=== PATIENT | male | born 1955 | race Hispanic/Latino ===

== ENCOUNTER 2022-06-11 08:42 | Observation (INO) | payer OTHER ==
[2022-06-10 10:38] LABS: BASOPHILS % 0.4 % (0.0-1.0); EOSINOPHILS # (AUTO) 0.2 (0.0-0.4); EOSINOPHILS % 2.7 % (0.0-6.0); HEMATOCRIT 45.3 % (38.2-49.6); HEMOGLOBIN 14.6 g/dL (14.0-18.0); LYMPHOCYTES # (AUTO) 1.9 (1.0-3.2); LYMPHOCYTES % 25.2 % (18.0-39.1); MEAN CORPUSCULAR HEMOGLOBIN 27.5 pg (28-32); MEAN CORPUSCULAR HGB CONC 32.2 g/dL (31-35); MEAN CORPUSCULAR VOLUME 85.3 fL (81-99); MONOCYTES # (AUTO) 0.6 (0.2-0.8); MONOCYTES % 7.6 % (4.4-11.3); NEUTROPHILS # (AUTO) 4.8 (2.1-6.9); NEUTROPHILS % 63.8 % (38.7-80.0); PLATELET COUNT 278 x10e3/uL (140-360); RED BLOOD COUNT 5.31 x10e6/uL (4.3-5.7); RED CELL DISTRIBUTION WIDTH 13.7 % (11.7-14.4)
[~2022-06-11] VITALS: Ht 167.6 cm; Wt 73.0 kg
[~2022-06-11 08:42] MED LIST: ASPIRIN EC81 MG PO; ROPIVACAINE 246.25 MG, EPINEPHRINE HCL 1:1000 1ML 0.5 MG, CLONIDINE HCL 0.08 MG, KETORO... INJ ONE
[2022-06-11] MEDS ORDERED: CELECOXIB 200 MG CAP ONE (08:52)
[2022-06-11] MEDS ORDERED: DEXAMETHASONE SOD PHOS 10 MG/1 ML VIAL ONE (08:52)
[2022-06-11] MEDS ORDERED: GABAPENTIN 300 MG CAP ONE (08:52)
[2022-06-11] MEDS ORDERED: CEFAZOLIN SODIUM 2 GM ONE (08:53)
[2022-06-11] MEDS ORDERED: LACTATED RINGER'S 1,000 ML ONE (08:53)
[2022-06-11] MEDS ORDERED: Vancomycin IV 1,000 MG ONE (10:54)
[2022-06-11] MEDS ORDERED: SODIUM CHLORIDE 0.9% 500ML 500 ML ONE (10:54)
[2022-06-11] MEDS ORDERED: TRANEXAMIC ACID 20 ML ONE (10:54)
[2022-06-11] MEDS ORDERED: SODIUM CHLORIDE 0.9% 100 ML ONE (11:32)
[2022-06-11] MEDS ORDERED: DOCUSATE SODIUM 100 MG CAP PO PRN (12:15)
[2022-06-11] MEDS ORDERED: DIPHENHYDRAMINE HCL INJ 50 MG/ML VIAL IV PRN (12:15)
[2022-06-11] MEDS ORDERED: ACETAMINOPHEN 650 MG SUPP PR PRN (12:15)
[2022-06-11] MEDS ORDERED: ONDANSETRON HCL INJ 2MG/ML 2ML 2 MG/ML VIAL IV PRN (12:15)
[2022-06-11] MEDS ORDERED: HYDROCODONE/APAP 5MG-325MG TAB PO PRN (12:15)
[2022-06-11] MEDS ORDERED: HYDROCODONE/APAP 7.5MG-325MG 1 EA TAB PO PRN (12:15)
[2022-06-11] MEDS ORDERED: BUPIVACAINE 0.5%/EPI 30 ML SDV INJ ONE (12:45)
[2022-06-11] MEDS ORDERED: MIDAZOLAM HCL 2 MG/2 ML VIAL ONE (13:59)
[2022-06-11] MEDS ORDERED: FENTANYL CITRATE/PF 100MCG/2 ML INJ ONE (13:59)
[2022-06-11 15:35] VITALS: BP 133/84
[2022-06-11 15:45] VITALS: BP 133/84
[2022-06-11 16:04] VITALS: BP 133/84
[2022-06-11] MEDS: SODIUM CHLORIDE 0.9% 1000ML 1,000 ML IV SCH (16:18)
[2022-06-11] MEDS: CELECOXIB 200 MG CAP PO SCH (16:48)
[2022-06-11] MEDS ORDERED: ZOLPIDEM TARTRATE 5 MG TAB PO PRN (21:00)
[2022-06-11] MEDS: ASPIRIN 325 MG TAB PO SCH (21:00)
[2022-06-11 21:47] VITALS: BP 167/74
[2022-06-12 00:41] VITALS: BP 133/89
[2022-06-12] MEDS: SODIUM CHLORIDE 0.9% 1000ML 1,000 ML IV SCH (02:21)
[2022-06-12 05:02] VITALS: BP 142/90
[2022-06-12 06:00] LABS: HEMATOCRIT 39.2 % (38.2-49.6); HEMOGLOBIN 12.9 g/dL (14.0-18.0)
[2022-06-12 08:00] VITALS: BP 142/90
[2022-06-12 09:12] VITALS: BP 126/75
[2022-06-12] MEDS: CELECOXIB 200 MG CAP PO SCH (09:52)
[2022-06-12] MEDS: ASPIRIN 325 MG TAB PO SCH (09:52)
[2022-06-12] MEDS ORDERED: Morphine 10mg syringe 10 MG/ML INJ ONE (11:03)
[2022-06-12] MEDS ORDERED: ACETAMINOPHEN 1000 MG/100 ML IV PRN (12:15)
== END 2022-06-12 11:25 | disposition home or self-care (01) ==
LOC: OR 08:42 → MERGE 09:30 → PACU V 12:20 → MED/SURG2 15:23
PROVIDERS: ADMIT Specialist; ATTEND Specialist
DX: M17.0 Bilateral primary osteoarthritis of knee (principal); Z01.818 Encounter for other preprocedural examination; Z20.822 Contact with and (suspected) exposure to COVID-19; D64.9 Anemia, unspecified; I10 Essential (primary) hypertension; Z96.651 Presence of right artificial knee joint
CPT/HCPCS: 0223U; 36415; 85014; 85018; 85025; 86850; 86900; 86920; 94799; C1713; C1776; G0378; J0171; J0690; J1100; J1885; J2250; J2270; J2795; J3370; J7030; J7040; J7050